=== PATIENT | female | born 1955 | race Two or more races ===

== ENCOUNTER 2021-07-17 17:47 | Emergency (ER) | payer OTHER ==
[~2021-07-17] VITALS: Ht 162.6 cm; Wt 79.8 kg
[2021-07-17] MEDS ORDERED: CELEBREX50 MG (18:12)
[2021-07-17] MEDS ORDERED: CRESTOR5 MG (18:12)
== END 2021-07-17 19:56 | disposition home or self-care (01) ==
LOC: ER 17:47
DX: M25.561 Pain in right knee (principal); R60.0 Localized edema

== ENCOUNTER 2023-09-22 21:51 | Emergency (ER) | payer OTHER ==
[~2023-09-22] VITALS: Ht 162.6 cm; Wt 83.9 kg
[~2023-09-22 21:51] MED LIST: CELEBREX50 MG; CRESTOR5 MG
[2023-09-22] MEDS ORDERED: ANASTROZOLE1 MG (22:01)
[2023-09-22] MEDS ORDERED: OTEZLA30 MG (22:01)
[2023-09-22] MEDS ORDERED: HYDROXYZIN10 MG/5 ML (22:04)
[2023-09-22] MEDS ORDERED: TRAMADOL HCL50 MG PO (23:18)
== END 2023-09-22 23:38 | disposition home or self-care (01) ==
LOC: ER 21:51
DX: M75.31 Calcific tendinitis of right shoulder (principal); I10 Essential (primary) hypertension; E11.9 Type 2 diabetes mellitus without complications
CPT/HCPCS: 73030; 96372; 99283; J1885

== ENCOUNTER → 2023-09-24 | Emergency (ER) | payer OTHER ==
[~2023-09-24] VITALS: Ht 160 cm; Wt 84.4 kg
[~2023-09-24] MED LIST changes: +ANASTROZOLE1 MG; +HYDROXYZIN10 MG/5 ML; +OTEZLA30 MG; +TRAMADOL HCL50 MG PO
== END | disposition left against medical advice (07) ==
LOC: ER 03:16
DX: Z53.21 Procedure and treatment not carried out due to patient leaving prior to being seen by health care provider (principal)